=== PATIENT | female | born 1960 | race Caucasian/White ===

== ENCOUNTER 2022-02-04 13:22 | Inpatient (IN) ==
[2022-02-04] MEDS ORDERED: Famotidine 20 MG/2 ML VIAL IVP ONE (13:30)
[2022-02-04] MEDS ORDERED: Acetaminophen IV 1,000 MG/100 ML BAG IVPB ONE (13:30)
[2022-02-04] MEDS ORDERED: Ringers Solution, Lactated 1,000 ML IVC ONE (13:30)
[2022-02-04] MEDS ORDERED: Albuterol 2.5 MG/3 ML NEBULIZER IH PRN (13:57)
[2022-02-04] MEDS ORDERED: Nitroglycerin 0.4 MG TAB.SUBL SL PRN (13:57)
[2022-02-04] MEDS ORDERED: Ondansetron 4 MG/2 ML VIAL IVP PRN ×2 (13:57→21:15)
[2022-02-04] MEDS ORDERED: Naloxone 0.4 MG/ML INJ IVP PRN ×2 (13:57→21:15)
[2022-02-04] MEDS ORDERED: *HR* HYDROmorphone PF 0.5 MG/0.5 ML SYRINGE IVP PRN (13:57)
[2022-02-04] MEDS ORDERED: CeFAZolin Syr 2,000MG/20 ML 2,000 MG/20 ML SYRINGE IVPB ONE (14:10)
[2022-02-04] MEDS ORDERED: *HR* FentaNYL (PF) 100 MCG/2 ML VIAL ONE ×2 (14:57→17:05)
[2022-02-04] MEDS ORDERED: *HR* Propofol 200 MG/20 ML VIAL IVP ONE (14:57)
[2022-02-04] MEDS ORDERED: *HR* Midazolam HCl 2 MG/2 ML VIAL ONE (14:57)
[2022-02-04] MEDS ORDERED: Lidocaine -MPF 2% 2 ML VIAL ONE (15:05)
[2022-02-04] MEDS ORDERED: Lidocaine -MPF 4% 5 ML AMPUL ONE (15:07)
[2022-02-04] MEDS ORDERED: Ondansetron 4 MG/2 ML VIAL ONE ×2 (15:10→20:06)
[2022-02-04] MEDS ORDERED: EPHEDrine 50 MG/ML VIAL ONE (16:51)
[2022-02-04] MEDS ORDERED: Sugammadex Sodium 200 MG/2 ML VIAL IV ONE (18:33)
[2022-02-04] MEDS ORDERED: *HR* Rocuronium Bromide 50 MG/5 ML VIAL ONE (18:38)
[2022-02-04] MEDS ORDERED: *HR* HYDROMORPHONE 2 MG/ML VIAL ONE (18:59)
[2022-02-04] MEDS ORDERED: Ringers Solution, Lactated 1,000 ML IVC SCH (21:15)
[2022-02-04] MEDS ORDERED: *HR* HYDROmorphone 2 MG TABLET PO PRN (21:15)
[2022-02-04] MEDS ORDERED: Ringers Solution, Lactated 1,000 ML ONE (21:17)
[2022-02-05] MEDS ORDERED: Scopolamine Patch 1.5 MG PATCH.TD72 TD SCH (08:00)
[2022-02-05] MEDS: Loratadine 10 MG TABLET PO SCH (08:53)
[2022-02-05] MEDS: Ibuprofen 600 MG TABLET PO PRN ×3 (08:53→21:05)
[2022-02-06] MEDS: Ibuprofen 600 MG TABLET PO PRN (04:22)
[2022-02-06 04:38] VITALS: O2SAT 95
[2022-02-06] MEDS: Loratadine 10 MG TABLET PO SCH (08:29)
[2022-02-06 08:56] VITALS: BP 114/67; PULSE 77; TEMP 98
== END 2022-02-06 10:57 | disposition home or self-care (01) | DRG 743 ==
LOC: SAMDAY 13:22 → 1NENUOBS 21:09
PROVIDERS: ADMIT Obstetrics & Gynecology; ATTEND Obstetrics & Gynecology